=== PATIENT | female | born 1940 | race Caucasian/White ===

== ENCOUNTER 2024-12-14 06:40 | Day surgery (SDC) | payer OTHER ==
[2024-12-14] MEDS ORDERED: Ringers Lactate 1,000 ML IV ONE ×2 (06:46→10:31)
[2024-12-14 07:27] LABS: Absolute Lymphocytes (CBC) 2.2 K/uL (0.7-4.9); Hematocrit 37.0 % (36.0-45.0); Hemoglobin 12.7 g/dL (12.0-15.0); MCH 31.7 pg (27.0-35.0); MCHC 34.4 g/dL (32.0-36.0); MCV 91.9 fL (80-100); MPV 8.0 fL (7.6-11.3); Nucleated RBC Absolute Count 0.0 (0-0); Nucleated Red Blood Cells % 0.5 % (0-0); RBC Red Blood Cell Count 4.02 M/uL (3.86-4.86); White Blood Count 4.50 thou/uL (4.3-10.9)
[2024-12-14 07:42] LABS: Anion Gap 6.8 mEq/L (5.0-15.0); BUN Blood Urea Nitrogen 27.0 mg/dL (7-18); Glucose Level 95.0 mg/dL (74-106); Potassium 3.8 mEq/L (3.5-5.1)
[2024-12-14] MEDS ORDERED: ONDANSETRON 4 MG/2 ML VIAL ONE (08:00)
[2024-12-14] MEDS ORDERED: POVIDONE-IODINE 5% EYE DROPS ONE (08:00)
[2024-12-14] MEDS ORDERED: FENTANYL CITR 100 MCG/2 ML ONE (08:00)
[2024-12-14] MEDS ORDERED: BSS OPTHALMIC SOL 15 ML OPTH ONE (08:00)
[2024-12-14] MEDS ORDERED: LIDOCAINE 2% MPF 5 ML VIAL ONE (08:00)
[2024-12-14] MEDS: CEFAZOLIN SODIUM 1 GM/VIAL ONE (08:26)
[2024-12-14] MEDS: LIDOCAINE HCL/EPINEPHRINE 20 ML MDV ONE (08:43)
[2024-12-14] MEDS: OXYMETAZOLINE HCL 0.05% 30ML NAS ONE (08:45)
[2024-12-14] MEDS: OFLOXACIN OPH 0.3%-5 ML BTL ONE (08:45)
[2024-12-14] MEDS: TISSEEL VH 2 ML KIT TOP ONE (09:51)
[2024-12-14] MEDS: HYDRALAZINE HCL 20 MG/ML VIAL ONE (10:56)
[2024-12-14] MEDS ORDERED: OFLOXACIN OPH 0.3%-5 ML BTL ONE (12:08)
[2024-12-14 13:49] VITALS: BP 128/98; TEMP 97; O2SAT 97
--- NOTE | 2024-12-19 23:34 | OP ---
Date of Procedure: 12/14/2024 Surgeon: IRIS BANDA Primary Care Provider: Olivia Roberson. Preoperative Diagnoses: 1. Foreign body in left ear, subsequent encounter. 2. 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 Postoperative Diagnoses: 1. Foreign body in left ear, subsequent encounter. 2. 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 Procedures: 1. Microscopic exam of left ear canal with removal of foreign body from the left ear canal, general anesthesia. 2. Excision of right external ear and ear canal cholesteatoma with microscopy. 3. Complex repair of wound defect, right external ear/ear canal. Anesthesia: General anesthesia; and approximately 10 ml of 1% lidocaine with 1:100,000 epinephrine was injected at the right external ear excision site. Estimated Blood Loss: Less than 10 mL. Specimens: Obtained from the right external ear/ear canal. Findings: Hearing aid foreign body lodged in the medial left ear canal; large cholesteatoma extending from the right postauricular sulcus to the lateral cartilaginous region of the right ear canal, mucopurulent otorrhea, suspected granulation tissue versus cholesteatoma involving the right middle ear cavity, suspected right anterior tympanic membrane rupture from middle ear granulation tissue less than 25%. Complications: None. Disposition: Stable. The patient tolerated the procedure well. Indications For Procedure: The patient is an 84-year-old female, who presented to my outpatient clinic with left ear pain due to hearing aid foreign body lodged in the left ear canal and a chronically draining right ear canal with suspected cholesteatoma in the postauricular sulcus extending into the right ear canal. The patient has a history of dementia, prior right ear surgery, who presented to my outpatient clinic with her daughter with these complaints. These were indications to bring the patient to the operative suite for the above-mentioned procedures. The patient's family understood. All questions were answered. Risks versus benefits and complications were explained in detail and a consent form was signed, which was placed in the chart. Description Of Procedure: The patient was transferred from the preoperative holding area to the operative suite by Department of Anesthesia, placed on the operating table supine, sedated, and LMA was placed. I utilized a Zeiss microscope with auto-focus/zoom lens to perform the procedures. A 6 mm ear speculum was placed in the lateral end of the left ear canal and a hearing aid foreign body was removed with a right angle hook and Tunde forceps. This was placed into a specimen cup for the family. There was mild excoriation of the left ear canal, but tympanic membrane was intact and there was no evidence of perforation. Next, the right ear and ear canal were sterilely prepped and draped after infiltrating approximately 10 mL of 1% lidocaine with 1:100,000 epinephrine. Utilizing a 6 mm ear speculum, this was placed into the right ear canal and mucopurulent drainage was removed with suction. I examined the right ear canal and noticed that she had cholesteatoma extending from the right postauricular sulcus to the lateral portion of the right ear canal. I also visualized the tympanic membrane, which appeared to be collapsed with evidence of granulation tissue, possible additional cholesteatoma. It did not appear that the 2 were connected. Thus, I made an incision around the right external ear cholesteatoma utilizing a #15 blade scalpel at the location of the right postauricular sulcus. I made sure to include at least a 3 mm border of normal tissue around the cholesteatoma and I excised the cholesteatoma utilizing curved iris scissors, monopolar electrocautery, and this specimen was handed off the field. Hemostasis was achieved with monopolar electrocautery on the setting of 15 for coagulation and 1 of cutting. There was a fairly large wound defect. Thus, I used polyethylene glycol Hydrogel to perform a seal between the right external auditory canal and the postauricular tissue to prevent regrowth of the cholesteatoma. I then packed the right ear canal with Gel-Foam covered with Afrin and ofloxacin and then I reapproximated the complex wound defect with 4-0 Monocryl suture in a simple interrupted fashion for the deeper subcutaneous and dermal layers and then the epidermis was closed with 4-0 Monocryl in a continuous running fashion. The closure length measured approximately 4.2 cm in length. A compressive dressing was placed. The patient tolerated the procedure well and she was discharged back to the Department of Anesthesia and then subsequently transferred to postoperative care unit and discharged home on antibiotic and [id number] analgesic medication. She tolerated the procedure well and she will follow up in 1 to 2 weeks or sooner if needed. HUMBLE/REECE Voice ID: [id number] Report ID: [id number]
== END 2024-12-14 12:20 | disposition home or self-care (01) ==
LOC: OR 06:40
PROVIDERS: ATTEND Otolaryngology Facial Plastic Surgery
PROC: 09B47ZZ Excision of Left External Auditory Canal, Via Natural or Artificial Opening (ICD-10-PCS; 2024-12-14)
PROC: 09C47ZZ Extirpation of Matter from Left External Auditory Canal, Via Natural or Artificial Opening (ICD-10-PCS; principal; 2024-12-14 08:15)
DX: H60.41 Cholesteatoma of right external ear (principal); T16.2XXA Foreign body in left ear, initial encounter
CPT/HCPCS: 69205; 93005; 85025; 80048; 36415; 88304; 69145; J0360; J2704 ×7; J2003; J3010; J2405; J7120 ×2; J0690